=== PATIENT | male | born 1965 | race Caucasian/White ===

== ENCOUNTER 2018-12-27 17:36 | Inpatient (IN) | payer OTHER ==
[~2018-12-27] VITALS: Ht 193 cm; Wt 122.5 kg
--- NOTE | ~2018-12-27 | OP ---
[facility] [address] [place] [address] OPERATIVE REPORT Name: ISABEL VILLANUEVA Room: [address] IN .R.#: [id number] Admission: 12/27/18 Attend Phys: Lizette Hernandes Discharge: Date of : 67 Report #: [id number] THIS REPORT FOR: //name// CC: [facility] physician/PCP Rohit Azevedo DATE OF SERVICE: 12/28/2018 PREOPERATIVE DIAGNOSIS: Left ureteral obstruction. POSTOPERATIVE DIAGNOSIS: Left ureteral obstruction. PROCEDURE PERFORMED: Cystoscopy, left retrograde pyelogram, attempted ureteral access sheath, which was aborted due to inability to pass the access sheath and JJ stent placement. SURGEON: Rohit Delgadillo MD. COMPLICATIONS: None. DRAINS: Include a 6 x 26 cm left ureteral stent. SPECIMEN: None. ANESTHESIA: General. BLOOD LOSS: None. STATEMENT OF MEDICAL INDICATION: This is a 53-year-old male who presented with left-sided flank pain. He has had a rising creatinine up to 1.7. His urine is not infected. He continues to have pain and desires to undergo ureteroscopic stone extraction versus a JJ stent placement. He understands in advance it may only be possible to place a stent and he wishes to proceed. DESCRIPTION OF PROCEDURE: The procedure risks potential complications were all discussed in detail including but not limited to bleeding, infection, scar tissue formation, injury to the urinary tract or adjacent structures and need for further procedures. Following informed consent, the patient was taken to the operating room and placed under general anesthesia, was prepped and draped in sterile fashion in the dorsal lithotomy position. Cystoscopy was carried out. The patient has a nonobstructive prostate. Within the bladder, there were multiple small orange stone material scattered throughout the bladder wall near the left ureteral orifice. All this will be highly compatible with uric acid calculi. Therefore, this did influence some of the decisions and potentially the stone causing the obstruction, which is a 7-[place] [address] OPERATIVE REPORT Name: ISABEL VILLANUEVA Room: [address] IN ..#: [id number] Admission: 12/27/18 Attend Phys: Lizette Hernandes Discharge: Date of : 67 Report #: [id number] could be dissolved. Therefore, a retrograde pyelogram was performed, which revealed a normal caliber ureter and a nondilated renal collecting system. There was really no obstruction whatsoever. There was a filling defect in the renal collecting system and the lower pole patricia compatible with the stone. An attempt was made to pass a 12/14 ureteral dilator over a wire, which was unsuccessful and did not press it further beyond the intramural tunnel. Therefore, this was removed. The cystoscope was backloaded over the wire and a 6 x 26 cm stent was placed with a coil in the renal pelvis and the coil in the bladder. The bladder was drained. The patient given a B and O suppository per urethra and returned to recovery room in satisfactory condition. I think it is highly likely this patient has uric acid stones, so we will start him on potassium citrate, have him follow up in 2-3 weeks and likely repeat a CT scan to determine the volume of stone and whether it is passable at that point. By: [id number] l Delgadillo MD /nt
[~2018-12-27 17:36] MED LIST: NOHOMEMEDICATIONS; VICODIN ES TAB1 EACH PO
[2018-12-27 17:41] VITALS: BP 147/96
[2018-12-27] MEDS ORDERED: CRESTOR10 MG PO (17:48)
[2018-12-27] MEDS ORDERED: ASPIR 8181 MG PO (17:49)
[2018-12-27] MEDS ORDERED: VITAMIN D3400 UNIT PO (17:49)
[2018-12-27] MEDS ORDERED: OMEPRAZOLE 20 M20 M1 PO (17:49)
[2018-12-27 18:29] LABS: ABSOLUTE LYMPHOCYTES 1.9 thou/uL (0.8-5.3); ABSOLUTE NEUTROPHILS 8.7 thou/uL (1.6-8.1); BASOPHILS 0.4 %; EOSINOPHILS 0.3 %; HEMATOCRIT 45.3 % (42.0-52.0); HEMOGLOBIN 15.3 gm/dL (14.0-18.0); MCH 29.5 pg (26.0-34.0); MCHC 33.8 g/dL (28.0-37.0); MCV 87.3 fL (80.0-100.0); MONOCYTES 8.4 %; MPV 8.1 fl. (7.2-11.1); NUCLEATED RBCS 0 /100WBC; PLATELET COUNT* 258 thou/uL (150-400); POLYS 74.9 %; RBC 5.19 mil/uL (4.50-6.00); RDW-CV 14.4 % (10.5-14.5); WBC 11.7 thou/uL (4.0-11.0)
[2018-12-27 18:32] LABS: ANION GAP 11 mmol/L (7-16); BUN 20 mg/dL (7-18); CALCIUM 8.4 mg/dL (8.5-10.1); CHLORIDE 102 mmol/L (98-107); CO2 25 mmol/L (21-32); CREATININE 1.6 mg/dL (0.6-1.3); GLUCOSE 100 mg/dL (70-99); SODIUM 138 mmol/L (136-145)
[2018-12-27 18:46] LABS: ALBUMIN 4.1 g/dL (3.4-5.0); ALKALINE PHOSPHATASE 72 U/L (46-116); CK-MB MASS 3.8 ng/mL (<0.5-3.6); LIPASE 80 U/L (73-393); NT-PRO BRAIN NAT PEPTIDE 9 pg/mL (<300); SGOT 29 U/L (15-37); SGPT 53 U/L (30-65); TOTAL BILIRUBIN 0.4 mg/dL (<0.1-1.0); TROPONIN-I LEVEL <0.06 ng/mL (<0.06)
[2018-12-27 18:58] LABS: APTT 25.8 Seconds (25.0-31.3); PROTIME 10.3 Seconds (9.20-11.50)
[2018-12-27 22:51] VITALS: BP 143/99
[2018-12-27 23:49] LABS: URINE BILIRUBIN NEGATIVE (Negative); URINE BLOOD TRACE (Negative); URINE CLARITY CLEAR; URINE COLOR YELLOW; URINE GLUCOSE-RANDOM NEGATIVE (Negative); URINE KETONES NEGATIVE (Negative); URINE LEUKOCYTES-REFLEX NEGATIVE (Negative); URINE NITRITE-REFLEX NEGATIVE (Negative); URINE PROTEIN NEGATIVE (Negative); URINE SPECIFIC GRAVITY >= 1.030 (1.005-1.030); URINE UROBILINOGEN 0.2 E.U./dl (0.2-1.0)
[2018-12-28] VITALS (10 sets, daily range): BP systolic 117–124; BP diastolic 60–87
[2018-12-28 01:04] LABS: ANION GAP 7 mmol/L (7-16); BUN 20 mg/dL (7-18); CALCIUM 8.4 mg/dL (8.5-10.1); CHLORIDE 105 mmol/L (98-107); CHOLESTEROL 208 mg/dL (<200); CO2 27 mmol/L (21-32); CREATININE 1.7 mg/dL (0.6-1.3); GLUCOSE 115 mg/dL (70-99); HDL CHOLESTEROL 28 mg/dL (>40); LDL CHOLESTEROL 104 mg/dL (<100); POTASSIUM 4.6 mmol/L (3.5-5.1); SODIUM 139 mmol/L (136-145); TC:HDL 7.4 Ratio (Not establshd); TRIGLYCERIDE 383 mg/dL (<150); VLDL 77 mg/dL (<40)
[2018-12-28 01:06] LABS: SERUM ASSESSMENT Clear
--- NOTE | 2018-12-28 09:18 | NUR ---
UROLOGY NURSE PRACTIONER CALLED FOR AN UPDATE ON PT. CERAMICS TECHNICIAN REQUESTED TO KEEP PT NPO FOR POSSIBLE PROCEDURE THIS AFTERNOON.
[2018-12-28 11:19] LABS: CREATININE 1.7 mg/dL (0.6-1.3); POTASSIUM 4.5 mmol/L (3.5-5.1)
--- NOTE | 2018-12-28 12:57 | NUR ---
PATIENT CAME TO THE FLOOR IN STABLE CONDITION VIA BED. VITAL SIGNS STABLE ON ROOM AIR. ROOM ORIENTATION AND ADMISSION ASSESSMENT DONE. PATIENT LEFT FOR SURGERY VIA BED. CONSENT WAS OBTAINED.
--- NOTE | 2018-12-28 15:30 | 2DMMODE ---
[place] [address] 2 D/M-MODE ECHOCARDIOGRAM Name: ISABEL VILLANUEVA Room: [address] IN [facility]#: [id number] Admission: 12/27/18 Attend Phys: Rohit Azevedo Discharge: Date of : 67 Date of Service: 12/28/18 1529 Report #: [id number] THIS REPORT FOR: //name// APPROVED REPORT Study performed: 12/28/2018 14:59:22 EXAM: Comprehensive 2D, Doppler, and color-flow Echocardiogram Patient Location: In-Patient Room #: [facility] Status: routine BSA: 2.52 HR: 67 bpm BP: 120/79 mmHg Rhythm: NSR Other Information Study Quality: Good Indications Chest Pain 2D Dimensions IVSd: 11.61 (7-11mm) LVOT Diam: 23.89 (18-24mm) LVDd: 48.59 mm PWd: 14.18 (7-11mm) Ascending Ao: 32.41 (22-36mm) LVDs: 27.95 (25-40mm) Aortic Root: 39.26 mm Volumes Left Atrial Volume (Systole) LA ESV Index: 32.50 mL/m2 Aortic Valve AoV Peak Nico.: 1.12 m/s AO Peak Gr.: 5.06 mmHg LVOT Max P.77 mmHg AO Mean Gr.: 3.01 mmHg LVOT Mean P.84 mmHg LVOT Max V: 0.97 m/s AO V2 VTI: 22.83 cm LVOT Mean V: 0.62 m/s DEEPTHI (VTI): 4.39 cm2 LVOT V1 VTI: 22.34 cm Mitral Valve E/A Ratio: 1.27 MV Decel. Time: 214.04 ms MV E Max Nico.: 0.95 m/[place] [address] 2 D/M-MODE ECHOCARDIOGRAM Name: ISABEL VILLANUEVA Room: [address] IN .R.#: [id number] Admission: 12/27/18 Attend Phys: Rohit Azevedo Discharge: Date of : 67 Date of Service: 12/28/18 1529 Report #: [id number] MV PHT: 62.07 ms MVA (PHT): 3.54 cm2 TDI E/Lateral E': 6.79 E/Medial E': 4.75 Medial E' Nico.: 0.20 m/s Lateral E' Nico.: 0.14 m/s Pulmonary Valve PV Peak Nico.: 0.75 m/s PV Peak Gr.: 2.24 mmHg Left Ventricle The left ventricle is normal size. There is normal LV segmental wall motion. There is normal left ventricular wall thickness. Left ventricular systolic function is normal. LVEF is 55-60%. The left ventricular diastolic function is normal. Right Ventricle The right ventricle is normal size. The right ventricular systolic function is normal. Atria The left atrium size is normal. The right atrium size is normal. Aortic Valve The aortic valve is normal in structure. No aortic regurgitation is present. There is no aortic valvular stenosis. Mitral Valve The mitral valve is normal in structure. Trace mitral regurgitation. No evidence of mitral valve stenosis. Tricuspid Valve The tricuspid valve is normal in structure. Trace tricuspid regurgitation. Pulmonic Valve The pulmonary valve is normal in structure. Trace pulmonic regurgitation. Great Vessels The aortic root is normal in size. IVC is normal in size and collapses >50% with inspiration[place] [address] 2 D/M-MODE ECHOCARDIOGRAM Name: ISABEL VILLANUEVA Room: [address] IN [facility]#: [id number] Admission: 12/27/18 Attend Phys: Rohit Azevedo Discharge: Date of : 67 Date of Service: 12/28/18 1529 Report #: [id number] There is no pericardial effusion. <Conclusion> The left ventricle is normal size. There is normal left ventricular wall thickness. Left ventricular systolic function is normal. LVEF is 55-60%. The left ventricular diastolic function is normal. Trace mitral regurgitation. Trace tricuspid regurgitation. IVC is normal in size and collapses >50% with inspiration. <ELECTRONICALLY SIGNED> By: Hernán Murphy MD, FACC 12/28/18 1529 1529 1529 Hernán Murphy MD, FACC /INF
--- NOTE | 2018-12-28 15:33 | EKG ---
[place] [address] ELECTROCARDIOGRAM REPORT Name: ISABEL VILLANUEVA Room: [address] ADM IN .R.#: [id number] Admission: 12/27/18 Attend Phys: Lizette Hernandes Discharge: Date of : 67 Report #: [id number] THIS REPORT FOR: //name// 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: [facility] : 1965 Requested By: Jonathan Godoy Order Number: [id number] MD: Hernán Murphy Measurements Intervals [place] Rate: 89 P: 48 GA: 182 QRS: 49 QRSD: 86 T: 8 QT: 361 QTc: 440 Interpretive Statements Sinus rhythm Low voltage, extremity and precordial leads Baseline wander in lead(s) I,II,III,aVR,aVL,aVF,V1,V2 Compared to ECG 07/28/2011 15:39:50 Low QRS voltage now present Sinus arrhythmia no longer present Electronically Signed On 12-28-2018 15:33:11 CDT by Hernán Murphy [email or web address] <ELECTRONICALLY SIGNED> By: Hernán Murphy MD, FAC 12/28/18 1533 1743 1743 Hernán Murphy MD, [facility] /EPI
[2018-12-28] MEDS ORDERED: PERCOCET PO (16:56)
[2018-12-28] MEDS ORDERED: BACTRIM DS TAB1 EAC1 PO (16:58)
[2018-12-28] MEDS ORDERED: LEVSIN0.125 MG PO (17:00)
[2018-12-28] MEDS ORDERED: KLOR-CON 1010 MEQ PO (17:02)
--- NOTE | 2018-12-28 17:21 | NUR ---
PATIENT IS ALERT AND ORIENTED SINCE COMING BACK FROM THE SURGERY. VITAL SIGNS STABLE ON ROOM AIR. PAIN IS UNDER CONTROL, PATIENT IS DOES HAVE SOME BLADDER SPASMS BUT IS TOLERABLE. PATIENT IS BEING DISCHARGED TO HOME WITH PRESCRIPTIONS AND DISCHARGE INSTRUCTIONS. QUESIONS ANSWERED FOR PATIENT AND SPOUSE. LEFT VIA WHEEL CHAIR TO HOME. UROLOGY DID NOT LEAVE PRESCRIPTIONS FOR PATIENT SO HOSPITALIST WROTE FOR PAIN MEDICATIONS AND MADE AN ADJUSTMEN. EXPLAINED TO PATIENT AND IF ANY QUESTIONS TO CALL BACK OR CALL UROLOGY. STATED UNDERSTANDING.
== END 2018-12-28 17:19 | disposition home or self-care (01) | DRG 660 ==
LOC: M.ERS 17:36 → M.TBA-ER 18:52 → M.3W 18:52
PROVIDERS: Emergency Medicine; ADMIT Internal Medicine
PROC: 0T778DZ Dilation of Left Ureter with Intraluminal Device, Via Natural or Artificial Opening Endoscopic (ICD-10-PCS; principal; 2018-12-28)
PROC: BT1F1ZZ Fluoroscopy of Left Kidney, Ureter and Bladder using Low Osmolar Contrast (ICD-10-PCS; principal; 2018-12-28)
DX: N13.6 Pyonephrosis (principal); J98.11 Atelectasis; R79.89 Other specified abnormal findings of blood chemistry; K21.9 Gastro-esophageal reflux disease without esophagitis; E78.5 Hyperlipidemia, unspecified; Z90.49 Acquired absence of other specified parts of digestive tract; Z79.82 Long term (current) use of aspirin; Z79.899 Other long term (current) drug therapy